=== PATIENT | female | born 1985 | race African-American/Black ===

== ENCOUNTER 2016-08-10 23:52 | Emergency (ER) | payer MEDICAID ==
[~2016-08-10 23:52] MED LIST: CONCCAP2 PO
[2016-08-11 00:50] LABS: BACTERIA, URINE RARE /hpf; BLOOD, URINE NEG (NEG); COMMENT (UR) CULT NOT INDICATED; CULTURE IF INDICATED CULT NOT INDICATED; GLUCOSE,URINE NEG (NEG); HYALINE CAST, URINE 1 /lpf (RARE); KETONE, URINE NEG (NEG); MUCUS URINE FEW /lpf (OCC); NITRITE,URINE NEG (NEG); SQUAMOUS EPITHELIAL CELL URINE 3 /hpf (0-5); URINE COLOR YELLOW (YELLW/STRAW)
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
[2016-12-29] MEDS ORDERED: DEPO104I SQ (16:24)
== END 2016-08-11 01:40 | disposition home or self-care (01) ==
LOC: HOBED 23:52
DX: O98.813 Other maternal infectious and parasitic diseases complicating pregnancy, third trimester (principal); Z3A.29 29 weeks gestation of pregnancy
CPT/HCPCS: 81001; 84112; 87210; 99284

== ENCOUNTER 2016-09-21 23:14 | Emergency (ER) | payer MEDICAID ==
--- NOTE | 2016-09-21 23:25 | PD ---
HPI Chief Complaint back pain Date Seen: Sep 21, 2016 Time Seen: 23:25 Travel History International Travel<30 Days: No Contact w/Intl Traveler<30Days: No History of Present Illness HPI Ms. Sanches is a 31 yo at 35 4/7 weeks GA (ARIELLE 10/23/2016) who presents with complaint of R sided back pain. Patient's duration of back pain. When provided to providers; patient initially reported chronic back pain for 3 weeks but later stated that back pain started today. Patient describes pain as 10/10 in severity, right of spine, in the mid back. Patient denies dysuria but reports increase in urgency. Patient denies any fevers at home. It also reports nausea today but denies vomiting. Patient states that she saw her OB provider earlier today but that her back pain was not addressed, so she sought reevaluation tonight. Patient denies vaginal bleeding, loss of vaginal fluid, or abdominal pain. Patient denies complications other than back pain, and states that she had reassuring prior ultrasound labs. Patient reports smoking during , approximately 3 cigarettes/day. No other exposures noted. Para: 3 : 7 : 3 History Past Medical History Medical History: Denies Significant Hx Obstetric History Obstetric History Past Surgical History Narrative Surgical Prior umbilical hernia repair Prior laser neck surgery Family History Family History: Negative Social History Narrative Social History Patient smokes 3+ cigarettes a day No illicit drugs or drinking No social concerns Allergies-Medications (Allergen,Severity, Reaction): Coded Allergies: No Known Allergies (Verified , 06/30/16) Home Meds Reported Medications Vit W/ Fe Fum-Iron Po (Concept Dha 53.5-38-1 mg)1 Cap Cap1 Cap PO DAILY 07/29/16 Review of Systems General / Constitutional: No: Fever, Chills Cardiovascular: No: Chest Pain or Discomfort Respiratory: No: Cough Gastrointestinal: Nausea, No: Vomiting Genitourinary: No: Urgency, Dysuria Musculoskeletal: Pain (right-sided back pain) Physical Exam Narrative GENERAL: Well-nourished, well-developed patient. SKIN: Warm and dry. HEAD: Normocephalic and atraumatic. EYES: No scleral icterus. No injection or drainage. ENT: No nasal drainage noted. Mucous membranes pink. Airway patent. NECK: Supple, trachea midline. No JVD. CARDIOVASCULAR: Regular rate and rhythm without murmurs RESPIRATORY: Breath sounds equal bilaterally. No accessory muscle use. ABDOMEN/GI: Abdomen soft, non-tender, bowel sounds present, no rebound, no guarding Gravid EXTREMITIES: No cyanosis or edema. BACK: Nontender without obvious deformity. No CVA tenderness. NEUROLOGICAL: Awake and alert. Motor and sensory grossly within normal limits. Five out of 5 muscle strength in all muscle groups. Normal speech. GENITOURINARY: Performed by nursing staff External Genitalia: intact and normal in appearance Cervix: Dilatation:1 Effacement: 50% Station: -3 Membranes: Intact Uterine Contractions: Y irregular FHT's: Category: 1 Baseline: 145 Reactive: Y Variability: Moderate Decels: None Data Data Vital Signs Reviewed: Yes MDM Medical Record Reviewed: Yes Narrative Course / MDM Ms. Sanches is a 31 yo at 35 4/7 weeks GA (ARIELLE 10/23/2016) Assessment: R sided back pain to palpation as well as to percussion Afebrile Urgency without dysuria Category 1 rhythm Contractions q3-5 min Cervix 1/50%/-3 Plan: Will check urinalysis Will provide Fentanyl for pain control Will give 1 L LR and reassess contractions Course/Plan: Patient's urinalysis negative for leuk esterase, nitrates, WBC; not suggestive of UTI Since negative urinalysis and afebrile, patient does not meet criteria for pyelonephritis. Due to pain to palpation, suspect that this is musculoskeletal in nature rather than true costovertebral angle tenderness. 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
[2016-09-21] MEDS ORDERED: hydrOXYzine PAMOATE 25 MG CAP PO PRN (23:45)
[2016-09-21] MEDS ORDERED: ACETAMINOPHEN 325 MG TAB PO ONE (23:45)
[2016-09-22 00:06] LABS: BLOOD, URINE NEG (NEG); GLUCOSE,URINE NEG (NEG); KETONE, URINE NEG (NEG); NITRITE,URINE NEG (NEG); SQUAMOUS EPITHELIAL CELL URINE 1 /hpf (0-5); URINE COLOR LIGHT-YELLOW (YELLW/STRAW)
[2016-09-22 00:11] LABS: COMMENT (UR) CULT NOT INDICATED; CULTURE IF INDICATED CULT NOT INDICATED
[2016-09-22] MEDS ORDERED: LACTATED RINGER'S 1000 ML INJ 1,000 ML IV SCH (00:18)
--- NOTE | 2016-09-22 01:09 | PD ---
History of Present Illness Date Seen: Sep 22, 2016 Time Seen: 01:00 History of Present Illness This patient is a 31-year-old black female 35 weeks presents combining of right-sided back pain and contractions. Denies bleeding or rupture the membranes heart rate tracing is reactive she is leelee about every 3- 4 minutes. Patient's cervix is dilated 1 cm 50% and -3 station high in the pelvis. Patient's currently unregistered for care here she goes to a doctor in in [place] for care. This patient's urine is clear by laboratory, she has CVA tenderness on the right side, she is afebrile other stable vital signs the patient does not meet criteria for pyelonephritis her she does have contractions which are probably causing her pain. Being 35 weeks it's indicated to hydrate and sedate to see if that will stop her contractions and her pain. She was given a liter of LR IV fluid and 50 mg of fentanyl IV. Patient's pain did subside traction is decreased. After therapy the patient is ready for discharge home to bedrest with heating pad on her right side and or hot bath and follow up with her OB doctor tomorrow she's having symptoms Jagdeep Nixon II, MD Sep 22, 2016 01:09
[2016-12-29] MEDS ORDERED: DEPO104I SQ (16:24)
== END 2016-09-22 01:48 | disposition home or self-care (01) ==
LOC: HOBED 23:14
DX: O26.893 Other specified pregnancy related conditions, third trimester (principal); M54.6 Pain in thoracic spine; R39.15 Urgency of urination; R11.0 Nausea; O62.9 Abnormality of forces of labor, unspecified; Z72.0 Tobacco use; Z3A.35 35 weeks gestation of pregnancy
CPT/HCPCS: 81001; 96374; 99284; J3010; J7120

== ENCOUNTER 2016-10-10 11:54 | Emergency (ER) | payer MEDICAID ==
--- NOTE | 2016-10-10 12:50 | PD ---
HPI Travel History International Travel<30 Days: No Contact w/Intl Traveler<30Days: No Known Affected Area: No History of Present Illness HPI This patient is a 31-year-old 7 para 3 033 EDC is October 23, 2016 at 38 weeks and 1 day she presents the chief complaint of low back pain and pressure in her lower abdomen irregular contractions states they were regular yesterday but then stopped no ruptured membranes no vaginal bleeding the baby is active thinks that she passed a small amount of her mucous plug care with an outside physician she did bring her records and they were reviewed. Presents for labor check Group B strep is negative Blood pressure range 95-105/67-77 History Past Medical History Narrative Medical No known drug allergies previous history of Chlamydia treated she states that the test for cure was negative also treated for BV history of an abnormal Pap smear Obstetric History Obstetric History Normal spontaneous vaginal delivery 3 3 terminations of Past Surgical History Narrative Surgical Hernia repair and left shoulder surgery Family History Narrative Family History Hypertension diabetes heart disease Social History Alcohol Use: No Tobacco Use: Yes (smoker blackened mild) Substance Abuse: No Allergies-Medications (Allergen,Severity, Reaction): Coded Allergies: No Known Allergies (Verified , 06/30/16) Home Meds Reported Medications Vit W/ Fe Fum-Iron Po (Concept Dha 53.5-38-1 mg)1 Cap Cap1 Cap PO DAILY 07/29/16 Review of Systems General / Constitutional: No: Fever, Weight Gain, Weight Loss, Chills, Other Eyes: No: Diploplia, Blurred Vision, Visual changes, Pain, Photophobia, Other HENT: No: Headaches, Vertigo, Dental Difficulties, Lightheadedness, Other Cardiovascular: No: Irregular Rhythm, Chest Pain or Discomfort, Palpitations, Tachycardia, Syncope, Varicosities, Edema, Cyanosis, Other Respiratory: No: Cough, Short of Breath, Wheezing, Other Gastrointestinal: Nausea, Abdominal Pain (irregular contractions) Genitourinary: Pelvic Pain (as per history of present illness), No: Urgency, Frequency, Dysuria, Nocturia, Hematuria, Decreased Urinary Output, Oliguria, Hesitancy, Dribbling, Incontinence, Dyspareunia, Discharge, Menorrhagia, Vaginal Bleeding, Other Musculoskeletal: Other (back pain and lower pelvic pain) Neurologic: No: Weakness, Dizziness, Syncope, Focal Abnormalities, Coordination Problem, Headache, Slurred Speech, Seizures, Other Physical Exam Narrative GENERAL: Well-nourished, well-developed patient. Alert oriented 3 and cooperative in mild distress secondary to discomfort SKIN: Warm and dry. HEAD: Normocephalic and atraumatic. EYES: No scleral icterus. No injection or drainage. Conjunctiva are pink ENT: No nasal drainage noted. Mucous membranes pink. Airway patent. Mucous membranes are dry NECK: Supple, trachea midline. No JVD. No thyroid enlargement CARDIOVASCULAR: Regular rate and rhythm without murmurs, gallops, or rubs. RESPIRATORY: Breath sounds equal bilaterally. No accessory muscle use. ABDOMEN/GI: Gravid consistent with 38 weeks soft nontender 1 palpable contraction baby is active Gravid to [-] weeks size 38 Fundal Height: [-] GENITOURINARY: External Genitalia: intact and normal in appearance BUS glands: [-] Cervix: [-] Posterior soft Dilatation: [-] 2-3 cm Effacement: [-] Thick Station: [-] Ballotable Presentation: [-] Vertex Membranes: [intact Uterine Contractions: [-] Irregular FHT's: Category: [-] 1 Baseline: [-]150 Reactive: [-] + Variability: [-] Moderate [id number] variability Decels: [-] 0 EXTREMITIES: No cyanosis or edema. 2+ reflexes NEUROLOGICAL: Awake and alert. Motor and sensory grossly within normal limits. Five out of 5 muscle strength in all muscle groups. Normal speech. 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
[2016-12-29] MEDS ORDERED: DEPO104I SQ (16:24)
== END 2016-10-10 13:35 | disposition home or self-care (01) ==
LOC: HOBED 11:54
DX: O26.93 Pregnancy related conditions, unspecified, third trimester (principal); M54.5 Low back pain; R10.30 Lower abdominal pain, unspecified; Z3A.38 38 weeks gestation of pregnancy
CPT/HCPCS: 99284

== ENCOUNTER 2016-10-18 10:34 | Inpatient (IN) | payer MEDICAID ==
[~2016-10-18] VITALS: Ht 154.9 cm; Wt 68.0 kg
[2016-10-18] VITALS (87 sets, daily range): BP systolic 85–118; BP diastolic 37–85; PULSE 73–120; RESP 16–20; TEMP 98.1–98.4
--- NOTE | 2016-10-18 11:18 | PD ---
HPI Date Seen: Oct 18, 2016 Time Seen: 11:20 Travel History International Travel<30 Days: No Contact w/Intl Traveler<30Days: No Known Affected Area: No History of Present Illness HPI Patient is a 31 year old with an EDC of 10/23/2016 at 39/2 weeks gestation presents to OB ED with complaints of contractions. She denies LOF or VB. Reports +FM. She receives her care through [place] [facility] however she states she would like to deliver her baby here. History Past Medical History Medical History: Denies Significant Hx Obstetric History Obstetric History 3 vaginal deliveries 3 miscarriages Family History Family History: Negative Social History Alcohol Use: No Tobacco Use: No Substance Abuse: No Allergies-Medications (Allergen,Severity, Reaction): Coded Allergies: No Known Allergies (Verified , 06/30/16) Home Meds Reported Medications Vit W/ Fe Fum-Iron Po (Concept Dha 53.5-38-1 mg)1 Cap Cap1 Cap PO DAILY 07/29/16 Review of Systems Except as stated in HPI: all other systems reviewed are Neg Physical Exam Narrative GENERAL: Well-nourished, well-developed patient. SKIN: Warm and dry. HEAD: Normocephalic and atraumatic. EYES: No scleral icterus. No injection or drainage. ENT: No nasal drainage noted. Mucous membranes pink. Airway patent. NECK: Supple, trachea midline. No JVD. CARDIOVASCULAR: Regular rate and rhythm without murmurs, gallops, or rubs. RESPIRATORY: Breath sounds equal bilaterally. No accessory muscle use. ABDOMEN/GI: Abdomen soft, non-tender, bowel sounds present, no rebound, no guarding Gravid to 39 weeks size GENITOURINARY: External Genitalia: intact and normal in appearance Cervix: [-] Dilatation: 4cm Effacement: 60% Station: -3 Presentation: vertex Membranes: intact Uterine Contractions: q5m on tocometer FHT's: Category: I Baseline: 150s Reactive: yes Variability: mod Decels: one variable decel noted EXTREMITIES: No cyanosis or edema. BACK: Nontender without obvious deformity. NEUROLOGICAL: Awake and alert. Motor and sensory grossly within normal limits. Normal speech. Data Data Vital Signs Reviewed: Yes [facility] Medical Record Reviewed: Yes Plan Patient is a 31 year old with an EDC of 10/23/2016 at 39/2 weeks gestation presents to OB ED with complaints of contractions. 1. IUP, laboring - Admit to L&D - Category I tracing, reassuring - Contractions q5m on tocometer - Cervix: 4/60%/-3, membranes intact - Patient desires epidural - GBS positive, start penicillin prophylaxis per protocol - Continue expectant management, augment labor if necessary dw Shayan Mazariegos MD R1 Oct 18, 2016 11:18
[2016-10-18] MEDS ORDERED: LACTATED RINGER'S 1000 ML INJ 1,000 ML IV PRN (11:22)
--- NOTE | 2016-10-18 11:28 | HHI.HP ---
HPI Chief Complaint Contraction pain Date Seen: Oct 18, 2016 Travel History International Travel<30 Days: No Contact w/Intl Traveler<30Days: No Known Affected Area: No History of Present Illness HPI Patient is 31-year-old black female at 39 weeks followed by [facility] who presents complaining of contractions. The patient that she was to deliver here not wherever she supposed to deliver. She denied denies bleeding or rupture the membranes. heart rate tracing is reactive she is leelee every 5 minutes painfully Para: 3 : 7 History Obstetric History Obstetric History 3 vaginal deliveries 3 miscarriages Social History Alcohol Use: No Tobacco Use: No Substance Abuse: No Allergies-Medications (Allergen,Severity, Reaction): Coded Allergies: No Known Allergies (Verified , 06/30/16) Home Meds Reported Medications Vit W/ Fe Fum-Iron Po (Concept Dha 53.5-38-1 mg)1 Cap Cap1 Cap PO DAILY 07/29/16 Review of Systems General / Constitutional: No: Fever, Weight Gain, Chills, Other Eyes: No: Diploplia, Blurred Vision, Visual changes, Pain, Photophobia HENT: No: Headaches, Vertigo, Lightheadedness Cardiovascular: No: Irregular Rhythm, Chest Pain or Discomfort, Palpitations, Tachycardia, Syncope, Varicosities, Edema, Cyanosis Respiratory: No: Cough, Short of Breath, Other Gastrointestinal: Abdominal Pain, No: Nausea, Vomiting, Diarrhea Genitourinary: No: Decreased Urinary Output, Oliguria Musculoskeletal: No: Limited ROM, Weakness, Cramping, Edema, Pain Skin: No Rash, No Itching, No Dryness, No Lumps, No Change in Pigmentation, No Change in Nails, No Alopecia, No Lesions Neurologic: No: Weakness, Dizziness, Syncope, Focal Abnormalities, Coordination Problem, Headache, Slurred Speech, Seizures Psychiatric: No: Depression, Suicidal Ideations, Homicidal Ideation Endocrine: No: Heat Intolerance, Cold Intolerance, Polydipsia, Polyuria, Other Physical Exam Narrative GENERAL: Well-nourished, well-developed patient. SKIN: Warm and dry. HEAD: Normocephalic and atraumatic. EYES: No scleral icterus. No injection or drainage. ENT: No nasal drainage noted. Mucous membranes pink. Airway patent. NECK: Supple, trachea midline. No JVD. CARDIOVASCULAR: Regular rate and rhythm without murmurs, gallops, or rubs. RESPIRATORY: Breath sounds equal bilaterally. No accessory muscle use. BREASTS: Bilateral exam showed no masses , no retractions, no nipple discharge. ABDOMEN/GI: Abdomen soft, non-tender, bowel sounds present, no rebound, no guarding Gravid to [-39] weeks size Fundal Height: [39-] GENITOURINARY: External Genitalia: intact and normal in appearance BUS glands: [-] Cervix: [-] Dilatation: [4-] Effacement: [-60] Station: [-3] Presentation: [-vtx] Membranes: [intact ] Uterine Contractions: [q 5 min-] FHT's: Category: [-1] Baseline: [-144] Reactive: [-yes] Variability: [-mod] Decels: [none-] EXTREMITIES: No cyanosis or edema. BACK: Nontender without obvious deformity. No CVA tenderness. NEUROLOGICAL: Awake and alert. Motor and sensory grossly within normal limits. Five out of 5 muscle strength in all muscle groups. Normal speech. Assessment/Plan Assessment and Plan This patient is a 31-year-old white female at 39 weeks gestation presents in labor. That she has intact membranes no bleeding noted baby is vertex, cervix is 460 and -3 contractions are every 5 minutes and painful heart rate tracing is reactive, plan to admit for labor evaluation augmentation when necessary and anticipate vaginal delivery Jagdeep Nixon II, MD Oct 18, 2016 11:28
[2016-10-18] MEDS ORDERED: LIDOCAINE HCL 1% 50 ML VIAL I-DERMAL PRN (11:30)
[2016-10-18] MEDS ORDERED: SODIUM CHLORID 0.9% 500 ML INJ 500 ML IV PRN (11:30)
[2016-10-18] MEDS ORDERED: CITRIC ACID-SODIUM CITRATE LIQ 30 ML UDC PO SCH (11:30)
[2016-10-18] MEDS ORDERED: MINERAL OIL 10 ML VIAL TOPICAL PRN (11:30)
[2016-10-18] MEDS ORDERED: LIDOCAINE HCL 1% 50 ML VIAL INFIL PRN (11:30)
[2016-10-18] MEDS ORDERED: SODIUM CHLOR 0.9% 1000 ML INJ 1,000 ML IV PRN (11:42)
[2016-10-18] MEDS ORDERED: OXYTOCIN 30 UNITS-500ML PREMIX 500 ML IV ONE (12:00)
[2016-10-18] MEDS: LACTATED RINGER'S 1000 ML INJ 1,000 ML IV SCH ×2 (12:36→21:21)
[2016-10-18 12:47] LABS: BACTERIA, URINE RARE /hpf; BLOOD, URINE NEG (NEG); GLUCOSE,URINE NEG (NEG); KETONE, URINE NEG (NEG); MUCUS URINE FEW /lpf (OCC); NITRITE,URINE NEG (NEG); SQUAMOUS EPITHELIAL CELL URINE 1 /hpf (0-5); URINE COLOR YELLOW (YELLW/STRAW)
[2016-10-18 12:50] LABS: COMMENT (UR) CULT NOT INDICATED; CULTURE IF INDICATED CULT NOT INDICATED
[2016-10-18] MEDS ORDERED: PENICILLIN G POTASSIUM INJ 5,000,000 UNITS in SODIUM CHLORIDE 0.9% INJ 100 ML IV ONE (13:00)
[2016-10-18 13:13] LABS: BASOPHIL # 0.1 TH/MM3 (0-0.2); BASOPHIL % 0.4 % (0.0-2.0); EOSINOPHIL # 0.1 TH/MM3 (0-0.4); EOSINOPHIL % 0.7 % (0.0-4.0); HEMATOCRIT 31.9 % (35.0-46.0); LYMPH % 16.2 % (9.0-44.0); LYMPHOCYTE # 2.2 TH/MM3 (1.0-4.8); MEAN CELL VOLUME 77.6 FL (80.0-100.0); MEAN CORPUSCULAR HEMOGLOBIN 24.5 PG (27.0-34.0); MEAN CORPUSCULAR HGB CONC 31.6 % (32.0-36.0); MONO % 8.3 % (0.0-8.0); NEUT % 74.4 % (16.0-70.0); PLATELET COUNT 251 TH/MM3 (150-450); RED CELL DISTRIBUTION WIDTH 16.2 % (11.6-17.2); WHITE BLOOD COUNT 13.5 TH/MM3 (4.0-11.0)
[2016-10-18 13:15] LABS: HEMO FLAGS AUTO DIFF
[2016-10-18] MEDS ORDERED: fentaNYL 2MCG-BUPIV 0.125% INJ 100 ML ONE (13:44)
[2016-10-18 14:00] LABS: SCAN/DIFF AUTO DIFF CONFIRMED
[2016-10-18] MEDS ORDERED: ACETAMINOPHEN 325 MG TAB PO PRN (14:15)
[2016-10-18] MEDS ORDERED: ePHEDrine/NS 25 MG/5 ML SYR ONE (15:53)
--- NOTE | 2016-10-18 15:53 | PD.LABORPN ---
Subjective Subjective Patient resting comfortably in bed. Epidural in place. AROM was performed and fluids were noted to be clear and IUPC was placed. Objective Vital Signs Vital Signs Date Time Temp Pulse Resp B/P Pulse Ox O2 Delivery O2 Flow Rate FiO2 10/18/16 15:38 107 99/60 10/18/16 15:36 97 10/18/16 15:35 102 10/18/16 15:30 100 10/18/16 15:30 104 94/48 10/18/16 15:27 102 10/18/16 15:26 103 10/18/16 15:25 92 10/18/16 15:20 99 109/61 10/18/16 15:20 95 10/18/16 15:15 104 10/18/16 15:15 105 102/61 10/18/16 15:11 96 111/68 10/18/16 15:10 107 10/18/16 15:06 99 118/58 10/18/16 15:05 103 10/18/16 15:00 97 109/61 10/18/16 15:00 18 10/18/16 15:00 94 10/18/16 14:55 102 10/18/16 14:55 98 104/66 10/18/16 14:52 108 100/57 10/18/16 14:51 99 113/69 10/18/16 14:50 101 10/18/16 14:50 105 117/76 10/18/16 14:49 107 116/85 10/18/16 14:44 94 93/77 10/18/16 12:45 19 10/18/16 12:42 102 104/65 10/18/16 11:40 20 10/18/16 11:00 98.2 10/18/16 10:54 108 102/64 Objective Pelvic Exam: Cervix: anterior Dilatation: 5cm Effacement: 70% Station: -2 Presentation: vertex Membranes: now ruptured Uterine Contractions: Irregular on tocometer FHT's: Category: I Baseline: 140s Reactive: yes Variability: mod Decels: intermittent variables Assessment/Plan Problem List: (1) Intrauterine Assessment and Plan Patient is a 31 year old at 39/2 weeks gestation admitted to L&D for labor. 1. IUP, laboring - Category I tracing, reassuring - Irregular contractions - Cervix: 5/70%/-2, AROM performed - IUPC placed - Epidural in place - GBS positive, continue penicillin prophylaxis per protocol - Continue expectant management dw Shayan Mazariegos MD R1 Oct 18, 2016 15:53
[2016-10-18] MEDS ORDERED: OXYTOCIN 30 UNITS-500ML PREMIX 500 ML IV SCH (17:30)
[2016-10-18] MEDS ORDERED: fentaNYL 2MCG-BUPIV 0.125% 100 ML EPIDURAL SCH (17:30)
[2016-10-18] MEDS ORDERED: DO NOT ADMINISTER ANTICOAGULANTS XX PRN (17:30)
[2016-10-18] MEDS ORDERED: ePHEDrine/NS 25 MG/5 ML SYR IV PRN (17:30)
[2016-10-18] MEDS ORDERED: NO SYSTEM NARCOTICS XX PRN (17:30)
[2016-10-18] MEDS: PENICILLIN G POTASSIUM INJ 2,500,000 UNITS in SODIUM CHLORIDE 0.9% INJ 100 ML IV SCH ×2 (17:31→21:00)
[2016-10-18] MEDS: NYSTAT/DIPHENHY/LIDO MOUTHWASH (Adult) 120ML SWISH-SPIT PRN ×2 (17:53→22:08)
--- NOTE | 2016-10-18 19:02 | PD.LABORPN ---
Subjective Subjective Patient is resting comfortably in bed. Pain is well controlled. She denies any pelvic pain or pressure. She states her tooth pain is well controlled. Objective Vital Signs Vital Signs Date Time Temp Pulse Resp B/P Pulse Ox O2 Delivery O2 Flow Rate FiO2 10/18/16 18:30 110 104/70 10/18/16 18:15 101 102/61 10/18/16 18:00 103 101/62 10/18/16 17:45 97 106/64 10/18/16 17:30 98.3 20 10/18/16 17:25 93 106/71 10/18/16 17:20 99 107/63 10/18/16 17:16 109 96/63 10/18/16 17:10 93 105/67 10/18/16 17:05 73 92/59 10/18/16 17:05 96 10/18/16 17:00 102 89/60 10/18/16 17:00 89 10/18/16 16:55 114 91/49 10/18/16 16:52 94 99/63 10/18/16 16:50 103 88/57 10/18/16 16:45 108 10/18/16 16:45 104 89/60 10/18/16 16:41 106 96/66 10/18/16 16:40 107 10/18/16 16:35 103 10/18/16 16:35 103 98/53 10/18/16 16:30 101 10/18/16 16:30 98 88/54 10/18/16 16:25 106 10/18/16 16:25 107 100/60 10/18/16 16:20 96/52 10/18/16 16:20 100 10/18/16 16:20 110 10/18/16 16:15 114 10/18/16 16:15 90/55 10/18/16 16:15 114 10/18/16 16:11 120 10/18/16 16:10 110 10/18/16 16:05 110 100/57 10/18/16 16:05 108 10/18/16 16:04 107 94/50 10/18/16 16:00 111 87/51 10/18/16 16:00 112 10/18/16 15:57 99 102/54 10/18/16 15:56 108 97/51 10/18/16 15:55 100 85/50 10/18/16 15:55 109 10/18/16 15:51 99 90/37 10/18/16 15:50 97 10/18/16 15:45 98 100/61 10/18/16 15:45 97 10/18/16 15:41 91 94/58 10/18/16 15:40 111 10/18/16 15:38 107 99/60 10/18/16 15:36 97 10/18/16 15:35 102 10/18/16 15:30 100 10/18/16 15:30 98.2 16 10/18/16 15:30 104 94/48 10/18/16 15:27 102 10/18/16 15:26 103 10/18/16 15:25 92 10/18/16 15:20 99 109/61 10/18/16 15:20 95 10/18/16 15:15 104 10/18/16 15:15 105 102/61 10/18/16 15:11 96 111/68 10/18/16 15:10 107 10/18/16 15:06 99 118/58 10/18/16 15:05 103 10/18/16 15:00 97 109/61 10/18/16 15:00 18 10/18/16 15:00 94 10/18/16 14:55 102 10/18/16 14:55 98 104/66 10/18/16 14:52 108 100/57 10/18/16 14:51 99 113/69 10/18/16 14:50 101 10/18/16 14:50 105 117/76 10/18/16 14:49 107 116/85 10/18/16 14:44 94 93/77 10/18/16 12:45 19 10/18/16 12:42 102 104/65 10/18/16 11:40 20 10/18/16 11:00 98.2 Objective Pelvic Exam: Cervix: [-] Dilatation: [-] Effacement: [-] Station: [-] Presentation: vertex Membranes: ruptured Uterine Contractions: q5-6 minutes FHT's: Category: I Baseline: 150s Reactive: yes Variability: mod Decels: none Assessment/Plan Problem List: (1) Intrauterine Assessment and Plan Patient is a 31 year old at 39/2 weeks gestation admitted to L&D for labor. 1. Active labor - Category I tracing, reassuring - Contractions q5-6 minutes - Cervix: 5/70%/-2, AROM at 15:45 - IUPC placed - Pitocin per protocol for labor augmentation - Epidural in place - GBS positive, continue penicillin prophylaxis per protocol - Continue expectant management dw Shayan Mazariegos MD R1 Oct 18, 2016 19:02
[2016-10-19] VITALS (21 sets, daily range): BP systolic 71–127; BP diastolic 48–76; PULSE 82–104; RESP 18–22; TEMP 98.5–98.8
--- NOTE | 2016-10-19 00:32 | PD.LABORPN ---
Subjective Subjective Patient is resting comfortably. Complains of back pain, but says that things are going well and her pain is well-controlled. She feels ready to push the baby out. Objective Vital Signs Vital Signs Date Time Temp Pulse Resp B/P Pulse Ox O2 Delivery O2 Flow Rate FiO2 10/19/16 00:00 18 10/18/16 23:46 100 96/63 10/18/16 23:43 18 10/18/16 23:43 101 100/63 10/18/16 23:17 18 10/18/16 23:15 101 91/53 10/18/16 23:00 18 10/18/16 22:53 93 91/56 10/18/16 22:45 98 89/55 10/18/16 22:42 98.1 18 10/18/16 22:30 91 97/60 10/18/16 22:18 18 10/18/16 22:15 93 91/62 10/18/16 22:14 18 10/18/16 22:09 18 10/18/16 22:00 88 98/58 10/18/16 21:45 92 101/68 10/18/16 21:30 18 10/18/16 21:15 18 10/18/16 21:15 94 101/64 10/18/16 21:04 98.4 10/18/16 21:00 96 92/74 10/18/16 20:45 94 106/69 10/18/16 20:22 18 10/18/16 20:20 93 103/66 10/18/16 20:10 18 10/18/16 20:00 104 104/55 10/18/16 19:36 18 10/18/16 19:30 91 95/58 10/18/16 19:30 98.4 10/18/16 19:16 18 10/18/16 19:00 105 95/60 10/18/16 18:30 110 104/70 10/18/16 18:15 101 102/61 10/18/16 18:00 103 101/62 10/18/16 17:45 97 106/64 10/18/16 17:30 98.3 20 10/18/16 17:25 93 106/71 10/18/16 17:20 99 107/63 10/18/16 17:16 109 96/63 10/18/16 17:10 93 105/67 10/18/16 17:05 73 92/59 10/18/16 17:05 96 10/18/16 17:00 102 89/60 10/18/16 17:00 89 10/18/16 16:55 114 91/49 10/18/16 16:52 94 99/63 10/18/16 16:50 103 88/57 10/18/16 16:45 108 10/18/16 16:45 104 89/60 10/18/16 16:41 106 96/66 10/18/16 16:40 107 10/18/16 16:35 103 10/18/16 16:35 103 98/53 10/18/16 16:30 101 10/18/16 16:30 98 88/54 10/18/16 16:25 106 10/18/16 16:25 107 100/60 Objective Pelvic Exam: Cervix: [-] Dilatation: [-] Effacement: [-] Station: [-] Presentation: [-] Membranes: [intact or ruptured] Uterine Contractions: q2-3 minutes FHT's: Category: 1 Baseline: 140 Reactive: Yes, up to 150 Variability: Moderate Decels: none Assessment/Plan Problem List: (1) Intrauterine Assessment and Plan Patient is a 31 year old at 39/2 weeks gestation admitted to L&D for labor. 1. Active labor - Category I tracing, reassuring - Contractions q2-3 minutes - Cervix: 7/100%/-1, AROM at 15:45 - IUPC in place - Pitocin per protocol for labor augmentation - Epidural in place - GBS positive, continue penicillin prophylaxis per protocol - Continue expectant management WDW Dr. Hussain Miranda,Alessandra Tucker MD R1 Oct 19, 2016 00:32
--- NOTE | 2016-10-19 01:42 | PD.OB.DELI ---
Delivery Date: Oct 19, 2016 Anesthesia: Epidural Episiotomy: None Vaginal Delivery: Normal Presentation: Occiput anterior Nuchal Cord: x1 Delayed cord clamping (45 sec): No Infant: Male One Minute : 9 Five Minute : 9 Weight: 2760g Care: Suctioned, Responded to stimulation Placenta: Spontaneous delivery, Intact, 3 vessel cord Laceration: No lacerations Additional Information Uneventful delivery of a baby boy. No lacerations. Mom and baby are doing well. Alessandra Miranda MD R1 Oct 19, 2016 01:42
[2016-10-19] MEDS ORDERED: BENZOCAINE 20% TOPICAL SPRAY 60 ML CAN TOPICAL PRN (01:45)
[2016-10-19] MEDS ORDERED: DOCUSATE SODIUM 50 MG/SENNA 8.6 MG TAB PO PRN (01:45)
[2016-10-19] MEDS ORDERED: ONDANSETRON ODT 4 MG TAB PO PRN (01:45)
[2016-10-19] MEDS ORDERED: ALUMINUM/MAGNESIUM/SIMETH 30 ML CUP PO PRN (01:45)
[2016-10-19] MEDS ORDERED: ZOLPIDEM TARTRATE 5 MG TAB PO PRN (01:45)
[2016-10-19] MEDS ORDERED: ACETAMINOPHEN 325 MG TAB PO PRN (01:45)
[2016-10-19] MEDS ORDERED: SODIUM CHLORIDE 0.9% FLUSH 10 ML FLUSH IV FLUSH PRN (01:45)
[2016-10-19] MEDS ORDERED: SODIUM CHLORIDE 0.9% FLUSH 10 ML FLUSH IV FLUSH SCH (01:45)
[2016-10-19] MEDS ORDERED: WITCH HAZEL 50%/GLYCERIN 12.5% 40 PAD JAR TOPICAL PRN (01:45)
[2016-10-19] MEDS ORDERED: OXYTOCIN 30 UNITS-500ML PREMIX 500 ML IV ONE (01:45)
--- NOTE | 2016-10-19 01:50 | PD.LABORPN ---
Subjective Subjective OB attending delivery note This multiparous patient delivered vaginally over intact perineum without complication a male infant weight 2760 g 04/07 no complications cord blood obtained placenta delivered spontaneously intact with no lacerations. The resident performed delivery with my supervision and did a very good job Objective Vital Signs Vital Signs Date Time Temp Pulse Resp B/P Pulse Ox O2 Delivery O2 Flow Rate FiO2 10/19/16 01:15 102 119/69 10/19/16 00:56 18 10/19/16 00:45 104 91/68 10/19/16 00:30 18 10/19/16 00:16 102 105/63 10/19/16 00:00 18 10/18/16 23:46 100 96/63 10/18/16 23:43 18 10/18/16 23:43 101 100/63 10/18/16 23:17 18 10/18/16 23:15 101 91/53 10/18/16 23:00 18 10/18/16 22:53 93 91/56 10/18/16 22:45 98 89/55 10/18/16 22:42 98.1 18 10/18/16 22:30 91 97/60 10/18/16 22:18 18 10/18/16 22:15 93 91/62 10/18/16 22:14 18 10/18/16 22:09 18 10/18/16 22:00 88 98/58 10/18/16 21:45 92 101/68 10/18/16 21:30 18 10/18/16 21:15 18 10/18/16 21:15 94 101/64 10/18/16 21:04 98.4 10/18/16 21:00 96 92/74 10/18/16 20:45 94 106/69 10/18/16 20:22 18 10/18/16 20:20 93 103/66 10/18/16 20:10 18 10/18/16 20:00 104 104/55 10/18/16 19:36 18 10/18/16 19:30 91 95/58 10/18/16 19:30 98.4 10/18/16 19:16 18 10/18/16 19:00 105 95/60 10/18/16 18:30 110 104/70 10/18/16 18:15 101 102/61 10/18/16 18:00 103 101/62 Objective Assessment/Plan Problem List: (1) Intrauterine Jagdeep Nixon II, MD Oct 19, 2016 01:50
[2016-10-19] MEDS: IBUPROFEN 600 MG TAB PO PRN ×2 (06:26→19:20)
--- NOTE | 2016-10-19 07:24 | HHI.OB ---
Subjective Post Day: 0 Remarks Patient seen and examined this morning. AFVSS since delivery. day # 0. Pain is well controlled. Decreased lochia. Denies dysuria. No breast tenderness. She is feeding the baby via breast and formula. No nausea or vomiting. Not yet ambulating well, epidural still wearing off. Denies calf pain , shortness of breath, or cough. She otherwise has no other complaints or concerns this morning. Objective Vitals/I&O Vital Signs Date Time Temp Pulse Resp B/P Pulse Ox O2 Delivery O2 Flow Rate FiO2 10/19/16 03:27 18 10/19/16 03:15 87 103/63 10/19/16 03:00 93 100/76 10/19/16 02:48 18 10/19/16 02:46 99 105/64 10/19/16 02:20 18 10/19/16 02:16 92 94/63 10/19/16 02:00 82 106/62 10/19/16 01:59 18 10/19/16 01:51 99 90/64 10/19/16 01:46 97 71/48 10/19/16 01:45 18 10/19/16 01:45 98.8 10/19/16 01:30 100 96/64 10/19/16 01:15 102 119/69 10/19/16 00:56 18 10/19/16 00:45 104 91/68 10/19/16 00:31 102 127/70 10/19/16 00:30 18 10/19/16 00:16 102 105/63 10/19/16 00:00 18 10/18/16 23:46 100 96/63 10/18/16 23:43 18 10/18/16 23:43 101 100/63 10/18/16 23:17 18 10/18/16 23:15 101 91/53 10/18/16 23:00 18 10/18/16 22:53 93 91/56 10/18/16 22:45 98 89/55 10/18/16 22:42 98.1 18 10/18/16 22:30 91 97/60 10/18/16 22:18 18 10/18/16 22:15 93 91/62 10/18/16 22:14 18 10/18/16 22:09 18 10/18/16 22:00 88 98/58 10/18/16 21:45 92 101/68 10/18/16 21:30 18 10/18/16 21:15 18 10/18/16 21:15 94 101/64 10/18/16 21:04 98.4 10/18/16 21:00 96 92/74 10/18/16 20:45 94 106/69 10/18/16 20:22 18 10/18/16 20:20 93 103/66 10/18/16 20:10 18 10/18/16 20:00 104 104/55 10/18/16 19:36 18 10/18/16 19:30 91 95/58 10/18/16 19:30 98.4 10/18/16 19:16 18 10/18/16 19:00 105 95/60 10/18/16 18:30 110 104/70 10/18/16 18:15 101 102/61 10/18/16 18:00 103 101/62 10/18/16 17:45 97 106/64 10/18/16 17:30 98.3 20 10/18/16 17:25 93 106/71 10/18/16 17:20 99 107/63 10/18/16 17:16 109 96/63 10/18/16 17:10 93 105/67 10/18/16 17:05 73 92/59 10/18/16 17:05 96 10/18/16 17:00 102 89/60 10/18/16 17:00 89 10/18/16 16:55 114 91/49 10/18/16 16:52 94 99/63 10/18/16 16:50 103 88/57 10/18/16 16:45 108 10/18/16 16:45 104 89/60 10/18/16 16:41 106 96/66 10/18/16 16:40 107 10/18/16 16:35 103 10/18/16 16:35 103 98/53 10/18/16 16:30 101 10/18/16 16:30 98 88/54 10/18/16 16:25 106 10/18/16 16:25 107 100/60 10/18/16 16:20 96/52 10/18/16 16:20 100 10/18/16 16:20 110 10/18/16 16:15 114 10/18/16 16:15 90/55 10/18/16 16:15 114 10/18/16 16:11 120 10/18/16 16:10 110 10/18/16 16:05 110 100/57 10/18/16 16:05 108 10/18/16 16:04 107 94/50 10/18/16 16:00 111 87/51 10/18/16 16:00 112 10/18/16 15:57 99 102/54 10/18/16 15:56 108 97/51 10/18/16 15:55 100 85/50 10/18/16 15:55 109 10/18/16 15:51 99 90/37 10/18/16 15:50 97 10/18/16 15:45 98 100/61 10/18/16 15:45 97 10/18/16 15:41 91 94/58 10/18/16 15:40 111 10/18/16 15:38 107 99/60 10/18/16 15:36 97 10/18/16 15:35 102 10/18/16 15:30 100 10/18/16 15:30 98.2 16 10/18/16 15:30 104 94/48 10/18/16 15:27 102 10/18/16 15:26 103 10/18/16 15:25 92 10/18/16 15:20 99 109/61 10/18/16 15:20 95 10/18/16 15:15 104 10/18/16 15:15 105 102/61 10/18/16 15:11 96 111/68 10/18/16 15:10 107 10/18/16 15:06 99 118/58 10/18/16 15:05 103 10/18/16 15:00 97 109/61 10/18/16 15:00 18 10/18/16 15:00 94 10/18/16 14:55 102 10/18/16 14:55 98 104/66 10/18/16 14:52 108 100/57 10/18/16 14:51 99 113/69 10/18/16 14:50 101 10/18/16 14:50 105 117/76 10/18/16 14:49 107 116/85 10/18/16 14:44 94 93/77 10/18/16 12:45 19 10/18/16 12:42 102 104/65 10/18/16 11:40 20 10/18/16 11:00 98.2 10/18/16 10:54 108 102/64 Objective Remarks GENERAL: Well-nourished, well-developed patient. CARDIOVASCULAR: Regular rate and rhythm without murmurs, gallops, or rubs. RESPIRATORY: Breath sounds equal bilaterally. No accessory muscle use. ABDOMEN/GI: Abdomen soft, non-tender. Fundus: Firm, non-tender at umbilicus. GENITOURINARY: Light to moderate bleeding. EXTREMITIES: No cyanosis or edema, non-tender, without signs of DVT. Medications and IVs Current Medications Medications (Trade) Dose Ordered Sig/Mahnaz Route Start Time Stop Time Status Last Admin (NS Flush) 2 ml BID IV FLUSH 10/19/16 01:45 (NS Flush) 2 ml UNSCH PRN IV FLUSH 10/19/16 01:45 (Tylenol) 650 mg Q4H PRN PO 10/19/16 01:45 (Motrin) 600 mg Q6H PRN PO 10/19/16 01:45 10/19/16 06:26 (Americaine 20% Top Spr) 1 spray Q4H PRN TOPICAL 10/19/16 01:45 (Tucks Pads) 1 applic QID PRN TOPICAL 10/19/16 01:45 (Angie-Colace) 2 tab Q12H PRN PO 10/19/16 01:45 (Ambien) 5 mg HS PRN PO 10/19/16 01:45 (M-M-R Ii Inj) 0.5 ml ONCE ONCE SQ 10/19/16 16:00 10/19/16 16:01 (Boostrix Inj) 0.5 ml ONCE ONCE IM 10/19/16 16:00 10/19/16 16:01 (Mag-Al Plus Susp Liq) 15 ml Q8H PRN PO 10/19/16 01:45 (Zofran Odt) 4 mg Q6H PRN PO 10/19/16 01:45 Assessment/Plan Problem List: (1) care following vaginal delivery Assessment and Plan 31 year old now PPD#0. 1. Care - AFVSS - Encouraged OOB, as tolerated - Motrin prn pain - Advised pelvic rest x 6 weeks - Breast and formula feeding - Contraception: Desires depo - Will f/u with OB provider in 6 weeks - Anticipate discharge in 1-2 days wdw Shayan Mazariegos MD R1 Oct 19, 2016 07:24
[2016-10-19] MEDS: oxyCODONE/ACETAMINOPHEN 5 MG/325 MG TAB PO PRN ×2 (11:35→19:20)
[2016-10-19] MEDS ORDERED: DIPHTH/TETANUS/ACEL PERTUSSIS (BOOSTER) 0.5 ML VIAL/PFS IM ONE (16:00)
[2016-10-19] MEDS ORDERED: MEASLES, MUMPS, RUBELLA VACCINE 0.5 ML VIAL SQ ONE (16:00)
[2016-10-20] MEDS: IBUPROFEN 600 MG TAB PO PRN ×2 (01:37→15:50)
[2016-10-20] MEDS: oxyCODONE/ACETAMINOPHEN 5 MG/325 MG TAB PO PRN (01:38)
--- NOTE | 2016-10-20 07:23 | HHI.OB ---
Subjective Post Day: 1 Remarks day # 1. AFVSS overnight. Pain controlled. Decreased lochia. Denies dysuria. No breast tenderness. She is feeding the baby via breast/ bottle. Appetite good. No nausea or vomiting. Positive flatus. Negative bowel movement. Ambulating well. Denies calf pain, shortness of breath, or cough. Otherwise, she is doing well this morning and has no other complaints. (Artem Ernst MD R2) Objective Vitals/I&O Vital Signs Date Time Temp Pulse Resp B/P Pulse Ox O2 Delivery O2 Flow Rate FiO2 10/19/16 08:00 98.5 10/19/16 08:00 88 22 93/59 Objective Remarks GENERAL: Well-nourished, well-developed patient. CARDIOVASCULAR: Regular rate and rhythm without murmurs, gallops, or rubs. RESPIRATORY: Breath sounds equal bilaterally. No accessory muscle use. ABDOMEN/GI: Abdomen soft, non-tender. Fundus: Firm, non-tender at umbilicus. GENITOURINARY: Light to moderate bleeding. EXTREMITIES: No cyanosis or edema, non-tender, without signs of DVT. Medications and IVs Current Medications Medications (Trade) Dose Ordered Sig/Mahnaz Route Start Time Stop Time Status Last Admin (NS Flush) 2 ml BID IV FLUSH 10/19/16 01:45 (NS Flush) 2 ml UNSCH PRN IV FLUSH 10/19/16 01:45 (Tylenol) 650 mg Q4H PRN PO 10/19/16 01:45 (Motrin) 600 mg Q6H PRN PO 10/19/16 01:45 10/20/16 01:37 (Americaine 20% Top Spr) 1 spray Q4H PRN TOPICAL 10/19/16 01:45 (Tucks Pads) 1 applic QID PRN TOPICAL 10/19/16 01:45 (Angie-Colace) 2 tab Q12H PRN PO 10/19/16 01:45 (Ambien) 5 mg HS PRN PO 10/19/16 01:45 (Mag-Al Plus Susp Liq) 15 ml Q8H PRN PO 10/19/16 01:45 (Zofran Odt) 4 mg Q6H PRN PO 10/19/16 01:45 (Percocet 5-325 Mg) 1 tab Q6HR PRN PO 10/19/16 11:15 10/20/16 01:38 (Artem Ernst MD R2) Assessment/Plan Problem List: (1) care following vaginal delivery Assessment and Plan 31 year old now PPD#1. 1. Care - AFVSS - Encouraged OOB, as tolerated - Motrin prn pain - Advised pelvic rest x 6 weeks - Breast and formula feeding - Contraception: Desires depo - Will f/u with OB provider in 6 weeks - Anticipate discharge in 1-[address] Leiva Discharge Planning Plan to discharge home today or tomorrow (Artem Ernst MD R2) Assessment and Plan Patient seen and examined. Agree with resident's plan. (Ginger Leiva MD) Artem Ernst MD R2 Oct 20, 2016 07:23 Ginger Leiva MD Oct 20, 2016 09:58
[2016-10-20] MEDS ORDERED: medroxyPROGESTERone ACETATE SUSP 150 MG/ML SYRINGE IM ONE (07:30)
[2016-10-20] MEDS ORDERED: IBUP-232 PO (08:02)
[2016-10-20] MEDS ORDERED: SENN1TAB PO (08:02)
--- NOTE | 2016-10-20 08:03 | HHI.DCPOC ---
Discharge Care Plan Diagnosis: (1) care following vaginal delivery Report Symptoms to Your Doctor -Temperate above 100.5 degrees -Redness, of incision or excessive or foul smelling drainage -Unusual pain or calf pain -Increased vaginal bleeding -Painful or difficulty urinating -Feelings of extreme sadness or anxiety after 2 weeks Goals to Promote Your Health * To prevent worsening of your condition and complications * To maintain your health at the optimal level Follow up with OB in 6 weeks Pelvic rest x 6 weeks Directions to Meet Your Goals Take your medications as prescribed Follow your dietary instruction Follow activity as directed Ensure plenty of rest for recovery Drink fluids for hydration Keep your appointments as scheduled Take your immunizations and boosters as scheduled If your symptoms worsen call your PCP, if no PCP go to Urgent Care Center or Emergency Room Smoking is Dangerous to Your Health. Avoid second hand smoke Call the 24-hour crisis hotline for domestic abuse at Artem Ernst MD R2 Oct 20, 2016 08:03 Ginger Leiva MD Oct 20, 2016 10:21
[2016-10-20 19:50] VITALS: BP 109/70; PULSE 80; RESP 20; TEMP 98.5
[2016-10-21] MEDS: IBUPROFEN 600 MG TAB PO PRN (02:39)
[2016-10-21] MEDS: oxyCODONE/ACETAMINOPHEN 5 MG/325 MG TAB PO PRN (02:39)
--- NOTE | 2016-10-21 07:37 | HHI.OB ---
Subjective Post Day: 2 Remarks day # 2. AFVSS overnight. Pain controlled. Decreased lochia. Denies dysuria. No breast tenderness. She is feeding the baby via breast. Appetite good. No nausea or vomiting. Positive flatus. Negative bowel movement. Ambulating well. Denies calf pain, shortness of breath, or cough. Otherwise, she is doing well this morning and has no other complaints. (Artem Ernst MD R2) Objective Vitals/I&O Vital Signs Date Time Temp Pulse Resp B/P Pulse Ox O2 Delivery O2 Flow Rate FiO2 10/20/16 19:50 80 20 109/70 10/20/16 19:50 98.5 Objective Remarks GENERAL: Well-nourished, well-developed patient. CARDIOVASCULAR: Regular rate and rhythm without murmurs, gallops, or rubs. RESPIRATORY: Breath sounds equal bilaterally. No accessory muscle use. ABDOMEN/GI: Abdomen soft, non-tender. Fundus: Firm, non-tender at umbilicus. GENITOURINARY: Light to moderate bleeding. EXTREMITIES: No cyanosis or edema, non-tender, without signs of DVT. Medications and IVs Current Medications Medications (Trade) Dose Ordered Sig/Mahnaz Route Start Time Stop Time Status Last Admin (NS Flush) 2 ml BID IV FLUSH 10/19/16 01:45 (NS Flush) 2 ml UNSCH PRN IV FLUSH 10/19/16 01:45 (Tylenol) 650 mg Q4H PRN PO 10/19/16 01:45 10/20/16 15:50 (Motrin) 600 mg Q6H PRN PO 10/19/16 01:45 10/21/16 02:39 (Americaine 20% Top Spr) 1 spray Q4H PRN TOPICAL 10/19/16 01:45 (Tucks Pads) 1 applic QID PRN TOPICAL 10/19/16 01:45 (Angie-Colace) 2 tab Q12H PRN PO 10/19/16 01:45 (Ambien) 5 mg HS PRN PO 10/19/16 01:45 (Mag-Al Plus Susp Liq) 15 ml Q8H PRN PO 10/19/16 01:45 (Zofran Odt) 4 mg Q6H PRN PO 10/19/16 01:45 (Percocet 5-325 Mg) 1 tab Q6HR PRN PO 10/19/16 11:15 10/21/16 02:39 (Artem Ernst MD R2) Assessment/Plan Problem List: (1) care following vaginal delivery Assessment and Plan 31 y/o female who is PPD# 2 s/p . -Continue routine care. -Percocet and Motrin PRN pain. -Encouraged OOB. Advised pelvic rest for 6 wks. -Will need a f/u appt. within 6 wks. -Re: ctrl, she would like Depot Shot. -D/c home today wdw OB attending Discharge Planning Plan to discharge home today (Artem Ernst MD R2) Collaborating MD Comments Agree with discharge management plans (Petty Padilla MD) Artem Ernst MD R2 Oct 21, 2016 07:37 Petty Padilla MD Oct 21, 2016 08:21
[2016-10-21 08:00] VITALS: BP 102/68; PULSE 68; RESP 20; TEMP 97.8
[2016-12-29] MEDS ORDERED: DEPO104I SQ (16:24)
== END 2016-10-21 10:10 | disposition home or self-care (01) | DRG 775 ==
LOC: HOBED 10:34 → H2EA 11:28 → H1EA 10-19 05:46
PROVIDERS: ADMIT Obstetrics & Gynecology Maternal & Fetal Medicine; ATTEND Obstetrics & Gynecology Maternal & Fetal Medicine
PROC: 10907ZC Drainage of Amniotic Fluid, Therapeutic from Products of Conception, Via Natural or Artificial Opening (ICD-10-PCS; 2016-10-18)
PROC: 00HU33Z Insertion of Infusion Device into Spinal Canal, Percutaneous Approach (ICD-10-PCS; 2016-10-18)
PROC: 3E0R3CZ (ICD-10-PCS; 2016-10-18)
PROC: 10E0XZZ Delivery of Products of Conception, External Approach (ICD-10-PCS; principal; 2016-10-19)
DX: O99.824 Streptococcus B carrier state complicating childbirth (principal); K08.89 Other specified disorders of teeth and supporting structures; O69.81X0 Labor and delivery complicated by cord around neck, without compression, not applicable or unspecified; Z37.0 Single live birth; Z3A.39 39 weeks gestation of pregnancy
CPT/HCPCS: 81001; 85025; 90715; 99285; J1050; J2540; J2590; J3010; J7120

== ENCOUNTER 2017-01-01 10:17 | Emergency (ER) | payer MEDICAID ==
[~2017-01-01 10:17] MED LIST changes: +DEPO104I SQ
[2017-01-01 10:18] VITALS: BP 128/76; PULSE 80; RESP 14; TEMP 98.2; O2SAT 98
[2017-01-01] MEDS ORDERED: IBUP800T23 PO ×2 (10:58→11:40)
--- NOTE | 2017-01-01 11:06 | RADRPT ---
EXAM DATE/TIME: 01/01/2017 10:46 [facility] COMPARISON: No previous studies available for comparison. INDICATIONS : Slipped and fell into a wall last night, pain anterior left shoulder MEDICAL HISTORY : None. SURGICAL HISTORY : left shoulder surgery 3 years ago ENCOUNTER: Initial ACUITY: 1 day PAIN SCORE: 8/10 LOCATION: Left shoulder FINDINGS: Multiple view examination of the left shoulder demonstrates no evidence of fracture or dislocation. The glenohumeral and acromioclavicular joints are maintained. There is normal range of motion betwee n internal and external rotation. Bony mineralization is normal. CONCLUSION: Negative for fracture or dislocation. Jhonatan Chaudhary MD FACR on January 01, 2017 at 11:03 Board Certified Radiologist. This report was verified electronically.
--- NOTE | 2017-01-01 11:41 | PD ---
HPI Chief Complaint: Injury Time Seen by Provider: 11:39 Travel History International Travel<30 days: No Contact w/Intl Traveler<30days: No Traveled to known affect area: No History of Present Illness HPI 31-year-old female presents to the emergency room with complaint of left shoulder pain after hitting it into a wall while chasing her daughter yesterday. Denies paresthesias, loss of sensation to the affected extremity. Reports decreased range of motion of the shoulder secondary to pain. Took ibuprofen earlier this morning with some relief of pain. Has not taken any other medications or tried any other treatments to the. Her symptoms. No other medical complaints. No known allergies. No other modifying factors or associated signs and symptoms. PFSH Past Medical History Blood Disorders: No Anxiety: Yes Depression: Yes Cerebrovascular Accident: No Diabetes: No Diminished Hearing: No Myocardial Infarction: No Influenza Vaccination: No ?: Not LMP: 01/01/2017 : 7 Para: 3 Miscarriage: 3 Ovarian Cysts: Yes Past Surgical History Abdominal Surgery: Yes (UMBILICAL HERNIA) Other Surgery: Yes (HERNIA REPAIR) Social History Alcohol Use: Yes (SOCIALLY) Tobacco Use: Yes (2 CIGARS/DAY) Substance Use: No Allergies-Medications (Allergen,Severity, Reaction): Coded Allergies: No Known Allergies (Verified , 01/01/17) Reported Meds & Prescriptions Reported Meds & Active Scripts Active Ibuprofen 800 Mg Tab 800 Mg PO Q6HR PRN Depo-SubQ Provera Inj (Medroxyprogesterone Inj) 104 Mg/0.65 Ml Inj 104 Mg SQ Q90D Reported Ibuprofen 800 Mg Tab 800 Mg PO Q8H PRN Concept Dha 53.5-38-1 mg ( Vit W/ Fe Fum-Iron Po) 1 Cap Cap 1 Cap PO DAILY Review of Systems Except as stated in HPI: all other systems reviewed are Neg Physical Exam Narrative GENERAL: Well-nourished, well-developed female patient, in no acute distress SKIN: Warm and dry. HEAD: Atraumatic. Normocephalic. EYES: Pupils equal and round. No scleral icterus. No injection or drainage. ENT: Mucosa pink and moist. Airway patent. NECK: Supple. Trachea midline. CARDIOVASCULAR: Regular rate. RESPIRATORY: No accessory muscle use. GASTROINTESTINAL: Round. MUSCULOSKELETAL: Unable to assess range of motion of the left shoulder secondary to patient guarding; no obvious deformities; without erythema, edema, ecchymosis; shoulder joint stable; shoulders equal. Left upper extremity is supple and non-tense with 2+ radial pulse and sensory intact without erythema or edema. Sensory intact to all fingers. 5/5 strength. No obvious deformities. No clubbing. No cyanosis. No edema. NEUROLOGICAL: Awake and alert. Oriented 3. No obvious cranial nerve deficits. Motor grossly within normal limits. Normal speech. PSYCHIATRIC: Appropriate mood and affect; insight and judgment normal. Data Data Last Documented VS Vital Signs Date Time Temp Pulse Resp B/P Pulse Ox O2 Delivery O2 Flow Rate FiO2 01/01/17 10:18 98.2 80 14 128/76 98 Orders Shoulder, Complete (>2vws) (01/01/17 10:30) [facility] Medical Decision Making Medical Screen Exam Complete: Yes Emergency Medical Condition: Yes Medical Record Reviewed: Yes Differential Diagnosis Contusion, sprain, fracture, dislocation Narrative Course 31-year-old female with left shoulder injury. Left shoulder x-ray concludes: Last 24 hours Impressions Shoulder X-Ray 01/01/17 1030 Signed Impressions: Service Date/Time: Sunday, January 01, 2017 10:46 - CONCLUSION: Negative for fracture or dislocation. Jhonatan Chaudhary MD FACR Ibuprofen prescribed for home. Patient verbalizes understanding and agreement with treatment plan. Patient is medically cleared and stable for discharge. Discussed reasons to return to the emergency department. Instructed patient to follow up with primary care provider. Patient agrees with treatment plan. The patients vital signs are stable and the patient is stable for outpatient follow- up and treatment. Patient discharged home, stable and in no acute distress. Diagnosis Primary Impression: Injury of left shoulder Referrals: Orthopedist Primary Care Physician Patient Instructions: General Instructions, Shoulder Pain (ED) Departure Forms: Tests/Procedures, Work Release Enter return to work date: Jan 02, 2017 Additional Instructions: Tylenol or ibuprofen as needed and as directed to reduce pain and inflammation Rest, ice, and compress extremity to decrease pain and inflammation Avoid aggravating activity; increase activity as tolerated Follow-up with primary care provider Follow-up with orthopedics as needed Return to the emergency department immediately with worsening symptoms Med/Other Pt SpecificInfo: Prescription(s) given Scripts Ibuprofen 800 Mg Otw654 Mg PO Q6HR PRN (PAIN) #20 TAB Ref 0 Prov:Ana Rubalcava 01/01/17 Disposition: 01 DISCHARGE HOME Condition: Stable Ana Rubalcava Jan 01, 2017 11:40
== END 2017-01-01 12:03 | disposition home or self-care (01) ==
LOC: NEPK 10:17
DX: S49.92XA Unspecified injury of left shoulder and upper arm, initial encounter (principal); W22.01XA Walked into wall, initial encounter; Y93.89 Activity, other specified
CPT/HCPCS: 73030; 99283

== ENCOUNTER 2017-02-21 18:56 | Emergency (ER) | payer MEDICAID ==
[~2017-02-21] VITALS: Ht 170.2 cm; Wt 55.0 kg
[~2017-02-21 18:56] MED LIST changes: +IBUP800T23 PO
[2017-02-21 19:12] VITALS: BP 125/71; PULSE 120; RESP 16; TEMP 99.4; O2SAT 100
== END 2017-02-21 20:00 | disposition left against medical advice (07) ==
LOC: NED 18:56
DX: F41.9 Anxiety disorder, unspecified (principal); Z53.21 Procedure and treatment not carried out due to patient leaving prior to being seen by health care provider
CPT/HCPCS: 99281

== ENCOUNTER 2017-03-21 20:30 | Emergency (ER) | payer MEDICAID ==
[~2017-03-21] VITALS: Ht 154.9 cm; Wt 67.0 kg
[2017-03-21 20:32] VITALS: BP 117/76; PULSE 100; RESP 16; TEMP 98.6; O2SAT 99
[2017-03-21] MEDS ORDERED: ACETAMINOPHEN 325 MG TAB PO ONE (23:00)
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
== END 2017-03-22 00:20 | disposition home or self-care (01) ==
LOC: NEPK 20:30
DX: S90.31XA Contusion of right foot, initial encounter (principal); V09.20XA Pedestrian injured in traffic accident involving unspecified motor vehicles, initial encounter
CPT/HCPCS: 73630; 99283; E0113

== ENCOUNTER 2017-06-22 05:39 | Emergency (ER) | payer MEDICAID ==
[~2017-06-22] VITALS: Ht 154.9 cm; Wt 66.0 kg
[~2017-06-22 05:39] MED LIST changes: +IBUP1TAB7 PO; -IBUP800T23 PO
[2017-06-22 05:40] VITALS: BP 121/76; PULSE 89; RESP 16; TEMP 98.3; O2SAT 100
[2017-06-22] MEDS ORDERED: NAPR500 PO (06:15)
[2017-06-22] MEDS ORDERED: CLIN150C14 PO (06:15)
--- NOTE | 2017-06-22 06:19 | PD ---
HPI Chief Complaint: Oral / Dental Pain or Problem Time Seen by Provider: 06:10 Travel History International Travel<30 days: No Contact w/Intl Traveler<30days: No Traveled to known affect area: No History of Present Illness HPI Patient comes in complaining of left lower dental pain ongoing for 2 weeks. Patient states that she has a broken tooth has been ongoing for over a year. Patient states she has not seen a dentist in a while. Patient has been using mouthwash prescribed by her primary care doctor with minimal to no improvement of symptoms. Pain is worse with eating on that side. Patient denies any fevers or difficulty swallowing. Denies , chest pain, shortness breath , or headaches. PFSH Past Medical History Blood Disorders: No Anxiety: Yes Depression: Yes Cerebrovascular Accident: No Diabetes: No Diminished Hearing: No Myocardial Infarction: No ?: Not Ovarian Cysts: Yes Past Surgical History Other Surgery: Yes (HERNIA REPAIR) Social History Alcohol Use: Yes (SOCIALLY) Tobacco Use: Yes (2 CIGARS/DAY) Substance Use: No Allergies-Medications (Allergen,Severity, Reaction): Coded Allergies: No Known Allergies (Verified Adverse Reaction, Unknown, 06/22/17) Reported Meds & Prescriptions Reported Meds & Active Scripts Active Naprosyn (Naproxen) 500 Mg Tab 500 Mg PO Q12HR PRN Clindamycin (Clindamycin HCl) 150 Mg Cap 2 Cap PO Q6H 10 Days Ibuprofen 800 Mg Tab 800 Mg PO Q6HR PRN Depo-Provera Sub-Q Inj (Medroxyprogesterone Inj) 104 Mg/0.65 Ml Inj 104 Mg SQ Q90D Reported Ibuprofen 800 Mg Tab 800 Mg PO Q8H PRN Concept Dha 53.5-38-1 mg ( Vit W/ Fe Fum-Iron Po) 1 Cap Cap 1 Cap PO DAILY Review of Systems Except as stated in HPI: all other systems reviewed are Neg Physical Exam Narrative GENERAL: Well-developed, well nourished, in no acute distress, and non-ill appearing. SKIN: Focused skin assessment warm and dry. HEAD: Atraumatic. Normocephalic. EYES: Pupils equal and round. EOMI. No scleral icterus. No injection or drainage. ENT: No nasal bleeding or discharge. Mucous membranes pink and moist. Poor dentition with no visible or palpable abscess. Floor the mouth, submandibular, submental are all soft to palpation. Uvula is midline. NECK: Trachea midline. No cervical lymphadenopathy. Supple. No nuclear rigidity. RESPIRATORY: No accessory muscle use. No respiratory distress. MUSCULOSKELETAL: No obvious deformities. No clubbing. No cyanosis. No edema. Full range of motion. NEUROLOGICAL: Awake and alert. No obvious cranial nerve deficits. Motor grossly within normal limits. Normal speech. PSYCHIATRIC: Appropriate mood and affect; insight and judgment normal. Data Data Last Documented VS Vital Signs Date Time Temp Pulse Resp B/P (MAP) Pulse Ox O2 Delivery O2 Flow Rate FiO2 06/22/17 05:40 98.3 89 16 121/76 (91) 100 Room Air Orders Orders Ed Discharge Order (06/22/17 06:19) MDM Medical Decision Making Medical Screen Exam Complete: Yes Emergency Medical Condition: Yes Differential Diagnosis Dental abscess, dental infection, dentalgia, Ray angina Narrative Course The patient presented with dental pain. There is no fever. There is no significant facial swelling or evidence of cellulitis. There is poor dentition but no evidence of drainable abscess at this time. There is no evidence of significant deep or invading abscess at this time. The patient will be placed on antibiotics and pain medication. The patient was instructed to follow up with a dentist. The patient was given the dental referral sheet. Warnings were discussed with the patient regarding worsening of infection. The patient is to return if pain worsens, develops progressive swelling or facial redness or fever. The patient agrees with plan. Patient in no obvious distress upon re-evaluation. Patient was asked if they wanted to speak to my attending, which the patient did not wish to do at this time. Any questions/concerns in reference to patient diagnosis/condition discussed and clarified prior to patient's discharge. Reinforced sheer importance of close follow up with patient's primary physician or primary care clinic. Instructed patient to return to ED immediately, if symptoms return/ worsen. Patient showed understanding of above instructions. Further instructions and recommendations were detailed in discharge paperwork. Patient ambulated without difficulty out of ED at discharge. Diagnosis Primary Impression: Infected dental carries Patient Instructions: Dental Abscess (ED), Dental Caries (DC), General Instructions Additional Instructions: Follow-up with your primary care physician and dentist as soon as possible. Rinse mouth with warm salt water gargles. Take all medication as prescribed. Return to the emergency department if symptoms get worse. Med/Other Pt SpecificInfo: Prescription(s) given Scripts Naproxen (Naprosyn) 500 Mg Tab 500 MG PO Q12HR Y for PAIN SCALE 1 TO 10, #14 TAB 0 Refills Prov: Sofya Bush MD 06/22/17 Clindamycin (Clindamycin) 150 Mg Cap 2 CAP PO Q6H for Infection for 10 Days, #80 CAP 0 Refills Prov: Sofya Bush MD 06/22/17 Disposition: 01 DISCHARGE HOME Condition: Stable Liam Rutherford Jun 22, 2017 06:19
== END 2017-06-22 06:25 | disposition home or self-care (01) ==
LOC: NEPD 05:39
DX: K02.9 Dental caries, unspecified (principal); F41.9 Anxiety disorder, unspecified; F32.9 Major depressive disorder, single episode, unspecified; F17.290 Nicotine dependence, other tobacco product, uncomplicated; Z79.899 Other long term (current) drug therapy
CPT/HCPCS: 99283

== ENCOUNTER 2017-09-26 07:41 | Emergency (ER) | payer MEDICAID ==
[~2017-09-26] VITALS: Ht 154.9 cm; Wt 69.0 kg
[~2017-09-26 07:41] MED LIST changes: +CLIN150C14 PO; +NAPR500 PO
[2017-09-26 07:44] VITALS: BP 128/64; PULSE 103; RESP 16; TEMP 97; O2SAT 97
--- NOTE | 2017-09-26 07:53 | PD ---
HPI Chief Complaint: Injury Time Seen by Provider: 07:51 Travel History International Travel<30 days: No Contact w/Intl Traveler<30days: No Traveled to known affect area: No History of Present Illness HPI 32-year-old -Swedish female presents emergency department with trip and fall in her home last evening. Patient states she is getting out of bed earlier this morning when she tripped on a children's toy and fell injuring her left thigh and lower leg. Patient now has difficulty ambulating secondary to pain mainly in the thigh as well as the posterior calf. She denies numbness, tingling, or significant swelling. She denies back pain. She denies any other injury. Pain is about an 8 out of 10, and worse with trying to ambulate. She has no weakness. She has no known drug allergies. PFSH Past Medical History Blood Disorders: No Anxiety: Yes Depression: Yes Cerebrovascular Accident: No Diabetes: No Diminished Hearing: No Myocardial Infarction: No Ovarian Cysts: Yes Past Surgical History Other Surgery: Yes (HERNIA REPAIR) Social History Alcohol Use: Yes (SOCIALLY) Tobacco Use: Yes (2 CIGARS/DAY) Substance Use: No Allergies-Medications (Allergen,Severity, Reaction): Coded Allergies: No Known Allergies (Verified Adverse Reaction, Unknown, 09/26/17) Reported Meds & Prescriptions Reported Meds & Active Scripts Active Naprosyn (Naproxen) 500 Mg Tab 500 Mg PO Q12HR PRN Clindamycin (Clindamycin HCl) 150 Mg Cap 2 Cap PO Q6H 10 Days Ibuprofen 800 Mg Tab 800 Mg PO Q6HR PRN Depo-Provera Sub-Q Inj (Medroxyprogesterone Inj) 104 Mg/0.65 Ml Inj 104 Mg SQ Q90D Reported Ibuprofen 800 Mg Tab 800 Mg PO Q8H PRN Concept Dha 53.5-38-1 mg ( Vit W/ Fe Fum-Iron Po) 1 Cap Cap 1 Cap PO DAILY Review of Systems Except as stated in HPI: all other systems reviewed are Neg General / Constitutional: No: Fever Eyes: No: Visual changes HENT: No: Headaches Cardiovascular: No: Chest Pain or Discomfort Respiratory: No: Shortness of Breath Gastrointestinal: No: Abdominal Pain Genitourinary: No: Dysuria Musculoskeletal: Positive: Myalgias, Limited ROM, Pain Skin: No Rash Neurologic: No: Weakness Psychiatric: No: Depression Endocrine: No: Polydipsia Hematologic/Lymphatic: No: Easy Bruising Physical Exam Narrative GENERAL: Patient appears in mild distress per SKIN: Warm and dry. Normal color. Normal turgor. No abrasions. No signs of trauma. HEAD: Atraumatic. Normocephalic. EYES: Pupils equal and round. No scleral icterus. No injection or drainage. ENT: No nasal bleeding or discharge. Mucous membranes pink and moist. Pharynx is clear. Airways patent NECK: Trachea midline. Supple and nontender. CARDIOVASCULAR: Regular rate and rhythm. RESPIRATORY: No accessory muscle use. Clear to auscultation. Breath sounds equal bilaterally. GASTROINTESTINAL: Abdomen soft, non-tender, nondistended. Hepatic and splenic margins not palpable. MUSCULOSKELETAL: Extremities without clubbing, cyanosis, or edema. No obvious deformities. Patient has soft tissue tenderness to the left anterior thigh, without specific point tenderness or swelling. The left knee has a normal exam. Patient has pain in the left gastrocnemius, without significant swelling or point tenderness. The left ankle has normal exam. NEUROLOGICAL: Awake and alert. No obvious cranial nerve deficits. Motor grossly within normal limits. Five out of 5 muscle strength in the arms and legs. Normal speech. PSYCHIATRIC: Appropriate mood and affect; insight and judgment normal. Data Data Last Documented VS Vital Signs Date Time Temp Pulse Resp B/P (MAP) Pulse Ox O2 Delivery O2 Flow Rate FiO2 09/26/17 07:44 97.0 103 16 128/64 (85) 97 Orders Orders Splint Or Brace Apply/Monitor (09/26/17 07:57) Crutches (09/26/17 07:57) [facility] Medical Decision Making Medical Screen Exam Complete: Yes Emergency Medical Condition: Yes Differential Diagnosis Trip and fall. Left thigh strain. Left calf strain. Muscle spasm. Narrative Course Radiographic imaging is not felt warranted based on my history and physical. Patient is placed in Case bandage from the ankle to the upper thigh. Patient is placed in a knee immobilizer and crutches for comfort. Patient is given ibuprofen 600 mg 4 times daily #40. Patient to contact extra strength Tylenol as well. Work note is given. Patient to follow-up if symptoms do not improve or worsen as needed. Diagnosis Primary Impression: Muscle strain of left thigh Qualified Codes: S76.912A - Strain of unspecified muscles, fascia and tendons at thigh level, left thigh, initial encounter Additional Impression: Sprain of calcaneofibular ligament of left ankle, initial encounter Patient Instructions: General Instructions, Muscle Spasm (ED) Departure Forms: Work Release Enter return to work date: Oct 01, 2017 Additional Instructions: Radiographic imaging is not felt warranted based on my history and physical. Patient is placed in Case bandage from the ankle to the upper thigh. Patient is placed in a knee immobilizer and crutches for comfort. Patient is given ibuprofen 600 mg 4 times daily #40. Patient to contact extra strength Tylenol as well. Work note is given. Patient to follow-up if symptoms do not improve or worsen as needed. Med/Other Pt SpecificInfo: Prescription(s) given Disposition: 01 DISCHARGE HOME Condition: Stable Jake Elizondo Sep 26, 2017 07:53
[2017-09-26] MEDS ORDERED: IBUP-232 PO (08:07)
== END 2017-09-26 08:37 | disposition home or self-care (01) ==
LOC: NEPD 07:41
DX: S76.912A Strain of unspecified muscles, fascia and tendons at thigh level, left thigh, initial encounter (principal); S93.412A Sprain of calcaneofibular ligament of left ankle, initial encounter; W01.0XXA Fall on same level from slipping, tripping and stumbling without subsequent striking against object, initial encounter; Y92.003 Bedroom of unspecified non-institutional (private) residence as the place of occurrence of the external cause; Z72.0 Tobacco use
CPT/HCPCS: 99283; E0113; L1830

== ENCOUNTER 2017-10-16 08:10 | Emergency (ER) | payer MEDICAID ==
[~2017-10-16 08:10] MED LIST changes: +IBUP-232 PO
[2017-10-16 08:29] VITALS: BP 114/55; PULSE 100; RESP 18; TEMP 98.9; O2SAT 99
[2017-10-16] MEDS ORDERED: BACT800T5 PO (10:03)
[2017-10-16] MEDS ORDERED: CEPH-460 PO (10:03)
--- NOTE | 2017-10-16 10:03 | PD ---
HPI Chief Complaint: Lump, Cyst, Hernia Time Seen by Provider: 09:57 Travel History International Travel<30 days: No Contact w/Intl Traveler<30days: No Traveled to known affect area: No History of Present Illness HPI 32-year-old female presents to the ED for evaluation of approximate 7 day history of tender lump in the left axilla. She denies any known injury to the area. She denies history of MRSA. She denies fevers, chills, nausea, vomiting , breast tenderness, nipple discharge. She endorses familial history of breast cancer. She also complains of foul-smelling discharge from the periumbilical incision. She states that she underwent tubal ligation "a few weeks ago. She' s had her postsurgical follow-up and was not having this issue at the time. PFSH Past Medical History Blood Disorders: No Anxiety: Yes Depression: Yes Cerebrovascular Accident: No Diabetes: No Diminished Hearing: No Myocardial Infarction: No ?: Not : 7 Para: 3 Miscarriage: 3 Ovarian Cysts: Yes Past Surgical History Other Surgery: Yes (HERNIA REPAIR) Social History Alcohol Use: Yes (SOCIALLY) Tobacco Use: Yes (2 CIGARS/DAY) Substance Use: No Allergies-Medications (Allergen,Severity, Reaction): Coded Allergies: No Known Allergies (Verified Adverse Reaction, Unknown, 09/26/17) Reported Meds & Prescriptions Reported Meds & Active Scripts Active Keflex (Cephalexin) 500 Mg Capsule 500 Mg PO Q6H 7 Days Bactrim DS (Sulfamethoxazole-Trimethoprim) 800-160 Mg Tab 1 Tab PO BID Ibuprofen 600 Mg Tab 600 Mg PO Q6H PRN Naprosyn (Naproxen) 500 Mg Tab 500 Mg PO Q12HR PRN Clindamycin (Clindamycin HCl) 150 Mg Cap 2 Cap PO Q6H 10 Days Ibuprofen 800 Mg Tab 800 Mg PO Q6HR PRN Depo-Provera Sub-Q Inj (Medroxyprogesterone Inj) 104 Mg/0.65 Ml Inj 104 Mg SQ Q90D Reported Ibuprofen 800 Mg Tab 800 Mg PO Q8H PRN Concept Dha 53.5-38-1 mg ( Vit W/ Fe Fum-Iron Po) 1 Cap Cap 1 Cap PO DAILY Review of Systems Except as stated in HPI: all other systems reviewed are Neg Physical Exam Narrative GENERAL: Well-nourished, well-developed AA female in NAD. SKIN: Focused skin assessment warm/dry. There is a well-healed infraumbilical incision. There is a pinpoint opening to the wound with small amount of foul- smelling drainage. No palpable abscess noted. Breast: No nipple drainage. No palpable masses. No peau d'orange. There is a 1 cm mobile, tender, deep lump in the left axilla. HEAD: Normocephalic. EYES: No scleral icterus. No injection or drainage. NECK: Supple, trachea midline. No JVD or lymphadenopathy. CARDIOVASCULAR: Regular rate and rhythm without murmurs, gallops, or rubs. RESPIRATORY: Breath sounds clear and equal bilaterally. No accessory muscle use. GASTROINTESTINAL: Abdomen soft, non-tender, nondistended. MUSCULOSKELETAL: No cyanosis, or edema. BACK: Nontender without obvious deformity. No CVA tenderness. Data Data Last Documented VS Vital Signs Date Time Temp Pulse Resp B/P (MAP) Pulse Ox O2 Delivery O2 Flow Rate FiO2 10/16/17 08:29 98.9 100 18 114/55 (74) 99 Orders Orders Ed Discharge Order (10/16/17 10:03) MDM Medical Decision Making Medical Screen Exam Complete: Yes Emergency Medical Condition: Yes Differential Diagnosis Lymphadenopathy versus axillary abscess versus wound infection versus suture abscess versus other Narrative Course 32-year-old female presents to the ED for evaluation of approximate 7 day history of tender lump in the left axilla. No history of MRSA. She denies fevers, chills, nausea, vomiting, breast tenderness, nipple discharge. She also complains of foul-smelling discharge from a periumbilical incision. She states that she underwent tubal ligation "a few weeks ago." She's had her postsurgical follow-up and was not having this issue at the time. She endorses familial history of breast cancer. Patient is afebrile on presentation. On exam there is a well-healed umbilical incision with a pinpoint opening which is draining foul smelling discharge. This was cultured and sent to the lab. She also has a 1 cm mobile, tender, deep nodule in the left axilla with no changes in the breast. I suspect this is lymphadenopathy. Will prescribe Bactrim and Keflex for the suture abscess and have the patient follow with the surgeon for further evaluation. Given her familial history of breast cancer I instructed her to follow up with her primary care for evaluation of the nodule in the axilla. She is agreeable to this plan. She is stable and discharged home. Diagnosis Primary Impression: Wound infection after surgery Qualified Codes: T81.4XXA - Infection following a procedure, initial encounter Additional Impression: Axillary lymphadenopathy Referrals: Activities Director [employer] Additional Instructions: Rest, hydrate. Keep the wound clean and dry. Begin antibiotics today and take them until they're all gone. Follow up with your gynecological surgeon for evaluation of ear wound infection. Follow-up with the primary care for evaluation of lymphadenopathy. Return to the ED for worsening symptoms or any urgent or emergent medical condition. Med/Other Pt SpecificInfo: Prescription(s) given Scripts Cephalexin (Keflex) 500 Mg Capsule 500 MG PO Q6H for Infection for 7 Days, #28 CAP 0 Refills Prov: Davonte Snyder MD 10/16/17 Sulfamethoxazole-Trimethoprim (Bactrim DS) 800-160 Mg Tab 1 TAB PO BID for Infection, #14 TAB 0 Refills Prov: Davonte Snyder MD 10/16/17 Disposition: 01 DISCHARGE HOME Condition: Stable Suzanna Freedman Oct 16, 2017 10:03
== END 2017-10-16 10:33 | disposition home or self-care (01) ==
LOC: NEPK 08:10
DX: T81.4XXA Infection following a procedure, initial encounter (principal); R59.0 Localized enlarged lymph nodes; F17.290 Nicotine dependence, other tobacco product, uncomplicated
CPT/HCPCS: 99283